=== PATIENT | male | born 1945 | race Caucasian/White ===

== ENCOUNTER 2018-06-04 06:26 | Inpatient (IN) | payer OTHER ==
[2018-06-04] VITALS (16 sets, daily range): BP systolic 94–138
[~2018-06-04] VITALS: Ht 182.9 cm; Wt 90.7 kg
[2018-06-04] MEDS ORDERED: NACL 0.9% 1,000 ML IV ONE ×4 (06:45→08:45)
[2018-06-04 07:03] LABS: BASOPHILS % (AUTO) 0.3 % (0.0-2.0); EOSINOPHILS # (AUTO) 0.3 K/uL (0.0-0.4); EOSINOPHILS % (AUTO) 3.2 % (0.0-4.0); HEMATOCRIT 29.2 % (36-54); HEMOGLOBIN 9.7 g/dL (14.0-18.0); LYMPHOCYTES # (AUTO) 1.4 K/uL (1.0-5.5); LYMPHOCYTES % (AUTO) 13.1 % (20.5-51.5); MEAN CORPUSCULAR HEMOGLOBIN 29 pg (27-31); MEAN CORPUSCULAR HGB CONC 33 % (32-36); MEAN CORPUSCULAR VOLUME 88 fL (79.0-98.0); MONOCYTES # (AUTO) 1.2 K/uL (0.0-1.0); MONOCYTES % (AUTO) 11.1 % (1.7-9.3); NEUTROPHILS # (AUTO) 7.8 K/uL (1.8-7.7); NEUTROPHILS % (AUTO) 72.3 % (40.0-70.0); PLATELET COUNT (AUTO) 414 K/uL (130-430); RED BLOOD CELL COUNT(AUTO) 3.34 MIL/uL (4.2-6.2); WHITE BLOOD COUNT (AUTO) 10.7 K/uL (4.8-10.8)
[2018-06-04 07:14] LABS: INR 1.2 (0.80-1.20); PROTHROMBIN TIME 12.1 SECS (9.5-12.5)
[2018-06-04] MEDS ORDERED: cefTRIAXone 1 GM IVPB PREMIX 50 ML IV ONE (07:15)
[2018-06-04 07:16] LABS: ALANINE AMINOTRANSFERASE 20 U/L (12-78); ALBUMIN 2.3 g/dL (3.4-4.8); ANION GAP 12 (5-15); ASPARTATE AMINOTRANSFERASE 24 U/L (10-37); CALCIUM 9.1 mg/dL (8.4-11.0); CHLORIDE 100 mmol/L (98-107); CREATININE 1.48 mg/dL (0.55-1.30); GLUCOSE 87 mg/dL (70-99); POTASSIUM 4.1 mmol/L (3.5-5.1); SODIUM SERUM 136 mmol/L (136-145); TOTAL BILIRUBIN 0.5 mg/dL (0.0-1.0); UREA NITROGEN, BLOOD 27 mg/dL (8-21)
[2018-06-04] MEDS ORDERED: VANCOMYCIN HCL 1,000 MG in NS 250 ML IV ONE (08:00)
[2018-06-04] MEDS ORDERED: VANCOMYCIN HCL 1000 MG/VIAL IV ONE (08:17)
[2018-06-04] MEDS ORDERED: TRAZ-123 PO (08:48)
[2018-06-04] MEDS ORDERED: HYDR20TA PO (08:48)
[2018-06-04] MEDS ORDERED: FLUT1DIS5 IH (08:48)
[2018-06-04] MEDS ORDERED: LEVO100T PO (08:48)
[2018-06-04] MEDS ORDERED: ATRMDI INH (08:48)
[2018-06-04] MEDS ORDERED: ONDA8TAB9 PO (08:48)
[2018-06-04] MEDS ORDERED: VIS50 PO (08:49)
[2018-06-04] MEDS ORDERED: NOREPINEPHRINE BITARTRATE 4 MG in NS 246 ML IV ONE (09:45)
[2018-06-04] MEDS ORDERED: PIPERACILLIN/TAZO 3.375/DEX-IS 50 ML IV ONE (14:15)
[2018-06-04] MEDS ORDERED: HYDROCORTISONE SOD SUCC 100 MG/2 ML VIAL IVP ONE (14:15)
[2018-06-04] MEDS ORDERED: IPRATROPIUM BROM 0.5 MG/2.5 ML VIAL.NEB (ATROVENT) INH PRN (14:30)
[2018-06-04] MEDS ORDERED: ALBUTEROL SULFATE 0.083% 2.5 MG/3 ML VIAL.NEB INH PRN (14:30)
[2018-06-04 14:53] LABS: THYROID STIMULATING HORMONE 30.47 uIu/mL (0.34-4.82)
[2018-06-04] MEDS: NACL 0.9% 1,000 ML IV SCH ×2 (15:04→23:19)
[2018-06-04] MEDS ORDERED: VANCOMYCIN HCL 2,000 MG in NS 500 ML IV ONE (15:30)
[2018-06-04] MEDS ORDERED: ACETAMINOPHEN 325 MG TABLET PO PRN (16:15)
[2018-06-04] MEDS: ALBUTEROL SULFATE 0.083% 2.5 MG/3 ML VIAL.NEB INH SCH (19:38)
[2018-06-04] MEDS: IPRATROPIUM BROM 0.5 MG/2.5 ML VIAL.NEB (ATROVENT) INH SCH (19:38)
[2018-06-04] MEDS: PIPERACILLIN/TAZO 3.375/DEX-IS 50 ML IV SCH (21:14)
[2018-06-04] MEDS: traZODone HCL 50 MG TABLET (DESYREL) PO SCH (21:31)
[2018-06-04] MEDS: HYDROCORTISONE SOD SUCC 100 MG/2 ML VIAL IVP SCH (23:14)
[2018-06-05] VITALS (24 sets, daily range): BP systolic 92–134
[2018-06-05] MEDS: IPRATROPIUM BROM 0.5 MG/2.5 ML VIAL.NEB (ATROVENT) INH SCH ×4 (02:00→20:05)
[2018-06-05] MEDS: ALBUTEROL SULFATE 0.083% 2.5 MG/3 ML VIAL.NEB INH SCH ×4 (02:00→20:05)
[2018-06-05] MEDS: PIPERACILLIN/TAZO 3.375/DEX-IS 50 ML IV SCH ×5 (05:56→23:33)
[2018-06-05 06:00] LABS: ALANINE AMINOTRANSFERASE 22 U/L (12-78); ALBUMIN 1.8 g/dL (3.4-4.8); ANION GAP 14 (5-15); ASPARTATE AMINOTRANSFERASE 25 U/L (10-37); CALCIUM 8.4 mg/dL (8.4-11.0); CHLORIDE 105 mmol/L (98-107); CREATININE 1.11 mg/dL (0.55-1.30); GLUCOSE 162 mg/dL (70-99); POTASSIUM 4.2 mmol/L (3.5-5.1); SODIUM SERUM 139 mmol/L (136-145); TOTAL BILIRUBIN 0.3 mg/dL (0.0-1.0); UREA NITROGEN, BLOOD 20 mg/dL (8-21)
[2018-06-05 06:05] LABS: BASOPHILS % (AUTO) 0.1 % (0.0-2.0); HEMOGLOBIN 8.9 g/dL (14.0-18.0); LYMPHOCYTES # (AUTO) 0.4 K/uL (1.0-5.5); LYMPHOCYTES % (AUTO) 3.8 % (20.5-51.5); MEAN CORPUSCULAR HEMOGLOBIN 30 pg (27-31); MEAN CORPUSCULAR HGB CONC 33 % (32-36); MEAN CORPUSCULAR VOLUME 91 fL (79.0-98.0); MONOCYTES # (AUTO) 0.4 K/uL (0.0-1.0); MONOCYTES % (AUTO) 3.6 % (1.7-9.3); NEUTROPHILS # (AUTO) 9.5 K/uL (1.8-7.7); NEUTROPHILS % (AUTO) 92.5 % (40.0-70.0); PLATELET COUNT (AUTO) 363 K/uL (130-430); RED BLOOD CELL COUNT(AUTO) 2.98 MIL/uL (4.2-6.2); WHITE BLOOD COUNT (AUTO) 10.3 K/uL (4.8-10.8)
[2018-06-05] MEDS ORDERED: HYDROCORTISONE SOD SUCC 100 MG/2 ML VIAL ONE (06:19)
[2018-06-05] MEDS: HYDROCORTISONE SOD SUCC 100 MG/2 ML VIAL IVP SCH ×3 (06:21→21:36)
[2018-06-05] MEDS: LEVOTHYROXINE SODIUM 0.112 MG TABLET PO SCH (06:22)
[2018-06-05] MEDS: PANTOPRAZOLE SODIUM 40 MG TAB PO SCH (06:22)
[2018-06-05] MEDS ORDERED: LEVOTHYROXINE SODIUM 0.1 MG TABLET PO SCH (07:00)
[2018-06-05] MEDS: NACL 0.9% 1,000 ML IV SCH (11:45)
[2018-06-05] MEDS: NOREPINEPHRINE BITARTRATE 4 MG in NS 246 ML IV PRN (11:46)
[2018-06-05] MEDS ORDERED: NOREPINEPHRINE 4 MG/4 ML VIAL IV ONE (11:47)
[2018-06-05] MEDS: VANCOMYCIN HCL 1,250 MG in NS 250 ML IV SCH (14:01)
[2018-06-05 15:31] LABS: BF APPEARANCE UNSPUN HAZY (CLEAR); BODY FLUID COLOR YELLOW (LT YELLOW); BODY FLUID TOTAL VOLUME 1000 mL; RBC, BODY FLUID 1208 /uL; SOURCE/TYPE ,BODY FLUID THORACENTESIS; WBC, BODY FLUID 345 /uL
[2018-06-05 15:32] LABS: MONOCYTES,BODY FLUID 9 %; NEUTROPHIL, BODY FLUID 91 %
[2018-06-05] MEDS: traZODone HCL 50 MG TABLET (DESYREL) PO SCH (20:05)
[2018-06-06] VITALS (24 sets, daily range): BP systolic 100–127
[2018-06-06] MEDS: IPRATROPIUM BROM 0.5 MG/2.5 ML VIAL.NEB (ATROVENT) INH SCH ×4 (01:01→19:00)
[2018-06-06] MEDS: ALBUTEROL SULFATE 0.083% 2.5 MG/3 ML VIAL.NEB INH SCH ×4 (01:01→19:00)
[2018-06-06] MEDS: VANCOMYCIN HCL 1,250 MG in NS 250 ML IV SCH ×2 (01:16→13:26)
[2018-06-06] MEDS: PANTOPRAZOLE SODIUM 40 MG TAB PO SCH (05:45)
[2018-06-06] MEDS: PIPERACILLIN/TAZO 3.375/DEX-IS 50 ML IV SCH ×4 (05:46→23:26)
[2018-06-06] MEDS: HYDROCORTISONE SOD SUCC 100 MG/2 ML VIAL IVP SCH ×3 (05:46→22:11)
[2018-06-06] MEDS: LEVOTHYROXINE SODIUM 0.112 MG TABLET PO SCH (06:44)
[2018-06-06 06:52] LABS: ANION GAP 13 (5-15); CHLORIDE 105 mmol/L (98-107); GLUCOSE 230 mg/dL (70-99); POTASSIUM 3.5 mmol/L (3.5-5.1); SODIUM SERUM 139 mmol/L (136-145)
[2018-06-06 06:53] LABS: ALANINE AMINOTRANSFERASE 21 U/L (12-78); ALBUMIN 1.8 g/dL (3.4-4.8); ASPARTATE AMINOTRANSFERASE 21 U/L (10-37); CALCIUM 8.6 mg/dL (8.4-11.0); CREATININE 1.18 mg/dL (0.55-1.30); HEMATOCRIT 24.5 % (36-54); HEMOGLOBIN 7.9 g/dL (14.0-18.0); RED BLOOD CELL COUNT(AUTO) 2.76 MIL/uL (4.2-6.2); TOTAL BILIRUBIN 0.2 mg/dL (0.0-1.0); UREA NITROGEN, BLOOD 17 mg/dL (8-21); WHITE BLOOD COUNT (AUTO) 18.3 K/uL (4.8-10.8)
[2018-06-06 06:54] LABS: BASOPHILS % (AUTO) 0.1 % (0.0-2.0); EOSINOPHILS % (AUTO) 0.1 % (0.0-4.0); LYMPHOCYTES # (AUTO) 0.4 K/uL (1.0-5.5); LYMPHOCYTES % (AUTO) 2.4 % (20.5-51.5); MEAN CORPUSCULAR HEMOGLOBIN 29 pg (27-31); MEAN CORPUSCULAR HGB CONC 32 % (32-36); MEAN CORPUSCULAR VOLUME 89 fL (79.0-98.0); NEUTROPHILS % (AUTO) 92.4 % (40.0-70.0); PLATELET COUNT (AUTO) 393 K/uL (130-430); RED CELL DISTRIBUTION WIDTH 15.2 % (9.0-15.0)
[2018-06-06 06:55] LABS: MONOCYTES # (AUTO) 0.9 K/uL (0.0-1.0)
[2018-06-06] MEDS: NOREPINEPHRINE BITARTRATE 4 MG in NS 246 ML IV PRN (10:47)
[2018-06-06] MEDS: PROMETHAZINE 6.25 MG/ CODEINE 10 MG/ 5 ML PO PRN ×2 (18:03→22:11)
[2018-06-06] MEDS: traZODone HCL 50 MG TABLET (DESYREL) PO SCH (20:18)
[2018-06-07] VITALS (16 sets, daily range): BP systolic 92–135
[2018-06-07] MEDS: VANCOMYCIN HCL 1,250 MG in NS 250 ML IV SCH ×2 (00:37→13:33)
[2018-06-07] MEDS: ALBUTEROL SULFATE 0.083% 2.5 MG/3 ML VIAL.NEB INH SCH ×4 (00:51→20:19)
[2018-06-07] MEDS: IPRATROPIUM BROM 0.5 MG/2.5 ML VIAL.NEB (ATROVENT) INH SCH ×4 (00:51→20:20)
[2018-06-07] MEDS: HYDROCORTISONE SOD SUCC 100 MG/2 ML VIAL IVP SCH ×3 (06:15→21:39)
[2018-06-07] MEDS: LEVOTHYROXINE SODIUM 0.112 MG TABLET PO SCH (06:15)
[2018-06-07] MEDS: PANTOPRAZOLE SODIUM 40 MG TAB PO SCH (06:15)
[2018-06-07] MEDS: PIPERACILLIN/TAZO 3.375/DEX-IS 50 ML IV SCH ×4 (06:16→23:33)
[2018-06-07 08:58] LABS: WHITE BLOOD COUNT (AUTO) 17.5 K/uL (4.8-10.8)
[2018-06-07 08:59] LABS: HEMATOCRIT 27.2 % (36-54); HEMOGLOBIN 8.9 g/dL (14.0-18.0); MEAN CORPUSCULAR HEMOGLOBIN 29 pg (27-31); MEAN CORPUSCULAR HGB CONC 33 % (32-36); MEAN CORPUSCULAR VOLUME 90 fL (79.0-98.0); PLATELET COUNT (AUTO) 425 K/uL (130-430); RED BLOOD CELL COUNT(AUTO) 3.04 MIL/uL (4.2-6.2); RED CELL DISTRIBUTION WIDTH 15.8 % (9.0-15.0)
[2018-06-07 09:00] LABS: BASOPHILS % (AUTO) 0.1 % (0.0-2.0); EOSINOPHILS % (AUTO) 0.1 % (0.0-4.0); LYMPHOCYTES # (AUTO) 0.5 K/uL (1.0-5.5); LYMPHOCYTES % (AUTO) 2.8 % (20.5-51.5); MONOCYTES # (AUTO) 0.4 K/uL (0.0-1.0); MONOCYTES % (AUTO) 2.3 % (1.7-9.3); NEUTROPHILS # (AUTO) 16.6 K/uL (1.8-7.7); NEUTROPHILS % (AUTO) 94.7 % (40.0-70.0)
[2018-06-07 09:09] LABS: ANION GAP 11 (5-15); CHLORIDE 110 mmol/L (98-107); POTASSIUM 3.6 mmol/L (3.5-5.1); SODIUM SERUM 143 mmol/L (136-145)
[2018-06-07 09:10] LABS: CALCIUM 8.8 mg/dL (8.4-11.0); CREATININE 1.06 mg/dL (0.55-1.30); GLUCOSE 146 mg/dL (70-99); UREA NITROGEN, BLOOD 14 mg/dL (8-21)
[2018-06-07] MEDS: traZODone HCL 50 MG TABLET (DESYREL) PO SCH (21:37)
[2018-06-08] MEDS: VANCOMYCIN HCL 1,250 MG in NS 250 ML IV SCH ×2 (00:52→12:17)
[2018-06-08] MEDS: ALBUTEROL SULFATE 0.083% 2.5 MG/3 ML VIAL.NEB INH SCH ×4 (01:00→20:01)
[2018-06-08] MEDS: IPRATROPIUM BROM 0.5 MG/2.5 ML VIAL.NEB (ATROVENT) INH SCH ×4 (01:00→20:01)
[2018-06-08 01:50] VITALS: BP_SYST 114
[2018-06-08] MEDS: LEVOTHYROXINE SODIUM 0.112 MG TABLET PO SCH (06:14)
[2018-06-08] MEDS: PANTOPRAZOLE SODIUM 40 MG TAB PO SCH (06:14)
[2018-06-08] MEDS: HYDROCORTISONE SOD SUCC 100 MG/2 ML VIAL IVP SCH (06:15)
[2018-06-08] MEDS: PIPERACILLIN/TAZO 3.375/DEX-IS 50 ML IV SCH ×3 (06:15→18:17)
[2018-06-08 08:55] VITALS: BP_SYST 120
[2018-06-08 09:30] LABS: HEMATOCRIT 28.4 % (36-54); HEMOGLOBIN 9.4 g/dL (14.0-18.0); MEAN CORPUSCULAR VOLUME 90 fL (79.0-98.0); RED BLOOD CELL COUNT(AUTO) 3.15 MIL/uL (4.2-6.2); WHITE BLOOD COUNT (AUTO) 18.2 K/uL (4.8-10.8)
[2018-06-08 09:31] LABS: EOSINOPHILS % (AUTO) 0.6 % (0.0-4.0); LYMPHOCYTES # (AUTO) 0.7 K/uL (1.0-5.5); LYMPHOCYTES % (AUTO) 3.6 % (20.5-51.5); MEAN CORPUSCULAR HEMOGLOBIN 30 pg (27-31); MEAN CORPUSCULAR HGB CONC 33 % (32-36); MONOCYTES % (AUTO) 4.8 % (1.7-9.3); NEUTROPHILS # (AUTO) 16.5 K/uL (1.8-7.7); PLATELET COUNT (AUTO) 506 K/uL (130-430); RED CELL DISTRIBUTION WIDTH 15.7 % (9.0-15.0)
[2018-06-08 09:32] LABS: EOSINOPHILS # (AUTO) 0.1 K/uL (0.0-0.4); MONOCYTES # (AUTO) 0.9 K/uL (0.0-1.0)
[2018-06-08] MEDS ORDERED: HYDROCORTISONE 10 MG TABLET (CORTEF) PO ONE (11:30)
[2018-06-08 12:23] VITALS: BP_SYST 107
[2018-06-08 12:41] LABS: BODY FLUID GLUCOSE 177 mg/dL
[2018-06-08] MEDS: MAG-AL HYDROX/SIMETH 30 ML UDC PO PRN (15:56)
[2018-06-08 16:54] VITALS: BP_SYST 134
[2018-06-08 20:00] VITALS: BP_SYST 127
[2018-06-08] MEDS: traZODone HCL 50 MG TABLET (DESYREL) PO SCH (20:11)
[2018-06-08] MEDS: HYDROCORTISONE 10 MG TABLET (CORTEF) PO SCH (20:11)
[2018-06-09] MEDS: PIPERACILLIN/TAZO 3.375/DEX-IS 50 ML IV SCH ×5 (00:12→23:19)
[2018-06-09] MEDS: ALBUTEROL SULFATE 0.083% 2.5 MG/3 ML VIAL.NEB INH SCH ×4 (01:00→19:00)
[2018-06-09] MEDS: IPRATROPIUM BROM 0.5 MG/2.5 ML VIAL.NEB (ATROVENT) INH SCH ×4 (01:00→19:00)
[2018-06-09] MEDS: VANCOMYCIN HCL 1,250 MG in NS 250 ML IV SCH ×2 (01:28→11:55)
[2018-06-09 02:58] VITALS: BP_SYST 115
[2018-06-09] MEDS: LEVOTHYROXINE SODIUM 0.112 MG TABLET PO SCH (06:03)
[2018-06-09] MEDS: PANTOPRAZOLE SODIUM 40 MG TAB PO SCH (06:03)
[2018-06-09 07:30] LABS: ANION GAP 5 (5-15); CALCIUM 9.4 mg/dL (8.4-11.0); CHLORIDE 105 mmol/L (98-107); GLUCOSE 106 mg/dL (70-99); POTASSIUM 3.4 mmol/L (3.5-5.1); SODIUM SERUM 139 mmol/L (136-145); UREA NITROGEN, BLOOD 19 mg/dL (8-21)
[2018-06-09 07:31] LABS: CREATININE 1.01 mg/dL (0.55-1.30)
[2018-06-09 08:15] VITALS: BP_SYST 117
[2018-06-09] MEDS: MAG-AL HYDROX/SIMETH 30 ML UDC PO PRN (08:18)
[2018-06-09] MEDS: HYDROCORTISONE 10 MG TABLET (CORTEF) PO SCH ×2 (08:19→22:08)
[2018-06-09 09:41] LABS: WHITE BLOOD COUNT (AUTO) 19.4 K/uL (4.8-10.8)
[2018-06-09 09:42] LABS: HEMATOCRIT 31.4 % (36-54); HEMOGLOBIN 10.5 g/dL (14.0-18.0); MEAN CORPUSCULAR HEMOGLOBIN 30 pg (27-31); MEAN CORPUSCULAR HGB CONC 33 % (32-36); MEAN CORPUSCULAR VOLUME 89 fL (79.0-98.0); PLATELET COUNT (AUTO) 586 K/uL (130-430); RED BLOOD CELL COUNT(AUTO) 3.54 MIL/uL (4.2-6.2); RED CELL DISTRIBUTION WIDTH 15.8 % (9.0-15.0)
[2018-06-09 09:43] LABS: BASOPHILS # (AUTO) 0.1 K/uL (0.0-0.2); BASOPHILS % (AUTO) 0.3 % (0.0-2.0); EOSINOPHILS # (AUTO) 0.4 K/uL (0.0-0.4); LYMPHOCYTES # (AUTO) 1.3 K/uL (1.0-5.5); LYMPHOCYTES % (AUTO) 6.9 % (20.5-51.5); MONOCYTES # (AUTO) 1.2 K/uL (0.0-1.0); MONOCYTES % (AUTO) 6.1 % (1.7-9.3); NEUTROPHILS # (AUTO) 16.4 K/uL (1.8-7.7); NEUTROPHILS % (AUTO) 84.7 % (40.0-70.0)
[2018-06-09] MEDS ORDERED: POTASSIUM CHLORIDE 20 MEQ TAB.PRT.SR PO ONE (10:45)
[2018-06-09 12:55] VITALS: BP_SYST 136
[2018-06-09 16:49] VITALS: BP_SYST 101
[2018-06-09 20:00] VITALS: BP_SYST 127; BP_SYST 133
[2018-06-09] MEDS: traZODone HCL 50 MG TABLET (DESYREL) PO SCH (22:08)
[2018-06-09 23:56] VITALS: BP_SYST 105
[2018-06-10] MEDS: VANCOMYCIN HCL 1,250 MG in NS 250 ML IV SCH ×2 (00:19→12:46)
[2018-06-10] MEDS: ALBUTEROL SULFATE 0.083% 2.5 MG/3 ML VIAL.NEB INH SCH ×4 (01:00→19:21)
[2018-06-10] MEDS: IPRATROPIUM BROM 0.5 MG/2.5 ML VIAL.NEB (ATROVENT) INH SCH ×4 (01:00→19:22)
[2018-06-10] MEDS: PANTOPRAZOLE SODIUM 40 MG TAB PO SCH (06:06)
[2018-06-10] MEDS: PIPERACILLIN/TAZO 3.375/DEX-IS 50 ML IV SCH ×3 (06:06→17:25)
[2018-06-10] MEDS: LEVOTHYROXINE SODIUM 0.112 MG TABLET PO SCH (06:06)
[2018-06-10 07:10] LABS: HEMATOCRIT 30.3 % (36-54); HEMOGLOBIN 9.8 g/dL (14.0-18.0); MEAN CORPUSCULAR HEMOGLOBIN 30 pg (27-31); MEAN CORPUSCULAR HGB CONC 32 % (32-36); MEAN CORPUSCULAR VOLUME 92 fL (79.0-98.0); PLATELET COUNT (AUTO) 473 K/uL (130-430); RED BLOOD CELL COUNT(AUTO) 3.29 MIL/uL (4.2-6.2); RED CELL DISTRIBUTION WIDTH 15.6 % (9.0-15.0); WHITE BLOOD COUNT (AUTO) 17.4 K/uL (4.8-10.8)
[2018-06-10 07:11] LABS: EOSINOPHILS # (AUTO) 0.4 K/uL (0.0-0.4); EOSINOPHILS % (AUTO) 2.1 % (0.0-4.0); LYMPHOCYTES # (AUTO) 0.8 K/uL (1.0-5.5); LYMPHOCYTES % (AUTO) 4.8 % (20.5-51.5); MONOCYTES # (AUTO) 1.1 K/uL (0.0-1.0); MONOCYTES % (AUTO) 6.4 % (1.7-9.3); NEUTROPHILS # (AUTO) 15.1 K/uL (1.8-7.7); NEUTROPHILS % (AUTO) 86.7 % (40.0-70.0)
[2018-06-10 07:41] VITALS: BP_SYST 115
[2018-06-10] MEDS: HYDROCORTISONE 10 MG TABLET (CORTEF) PO SCH ×2 (08:30→20:54)
[2018-06-10] MEDS: MAG-AL HYDROX/SIMETH 30 ML UDC PO PRN (08:33)
[2018-06-10] MEDS ORDERED: ENOXAPARIN SODIUM 40 MG/0.4 ML SYRINGE SUBCUT ONE (10:15)
[2018-06-10] MEDS: ONDANSETRON HCL 4 MG/2 ML VIAL IVP PRN ×2 (10:35→17:37)
[2018-06-10 12:45] VITALS: BP_SYST 113
[2018-06-10 17:19] VITALS: BP_SYST 117
[2018-06-10 19:00] VITALS: BP_SYST 113
[2018-06-10 20:00] VITALS: BP_SYST 113
[2018-06-10] MEDS: traZODone HCL 50 MG TABLET (DESYREL) PO SCH (20:55)
[2018-06-11 00:12] VITALS: BP_SYST 100
[2018-06-11] MEDS: IPRATROPIUM BROM 0.5 MG/2.5 ML VIAL.NEB (ATROVENT) INH SCH ×4 (00:36→19:39)
[2018-06-11] MEDS: ALBUTEROL SULFATE 0.083% 2.5 MG/3 ML VIAL.NEB INH SCH ×4 (00:36→19:40)
[2018-06-11] MEDS: PIPERACILLIN/TAZO 3.375/DEX-IS 50 ML IV SCH ×3 (00:52→18:00)
[2018-06-11] MEDS: VANCOMYCIN HCL 1,250 MG in NS 250 ML IV SCH ×2 (00:57→18:01)
[2018-06-11] MEDS: ONDANSETRON HCL 4 MG/2 ML VIAL IVP PRN ×2 (06:12→10:20)
[2018-06-11] MEDS: LEVOTHYROXINE SODIUM 0.112 MG TABLET PO SCH (06:17)
[2018-06-11] MEDS: PANTOPRAZOLE SODIUM 40 MG TAB PO SCH (06:17)
[2018-06-11 07:33] LABS: HEMATOCRIT 29.8 % (36-54); HEMOGLOBIN 9.4 g/dL (14.0-18.0); MEAN CORPUSCULAR VOLUME 91 fL (79.0-98.0); RED BLOOD CELL COUNT(AUTO) 3.27 MIL/uL (4.2-6.2); WHITE BLOOD COUNT (AUTO) 13.3 K/uL (4.8-10.8)
[2018-06-11 07:34] LABS: EOSINOPHILS # (AUTO) 0.5 K/uL (0.0-0.4); LYMPHOCYTES # (AUTO) 0.5 K/uL (1.0-5.5); LYMPHOCYTES % (AUTO) 4.1 % (20.5-51.5); MEAN CORPUSCULAR HEMOGLOBIN 29 pg (27-31); MEAN CORPUSCULAR HGB CONC 32 % (32-36); MONOCYTES % (AUTO) 7.3 % (1.7-9.3); NEUTROPHILS # (AUTO) 11.3 K/uL (1.8-7.7); NEUTROPHILS % (AUTO) 84.6 % (40.0-70.0); PLATELET COUNT (AUTO) 402 K/uL (130-430); RED CELL DISTRIBUTION WIDTH 16.2 % (9.0-15.0)
[2018-06-11 07:41] VITALS: BP_SYST 115
[2018-06-11 08:02] LABS: ANION GAP 6 (5-15); CHLORIDE 100 mmol/L (98-107); GLUCOSE 91 mg/dL (70-99); POTASSIUM 3.4 mmol/L (3.5-5.1); SODIUM SERUM 135 mmol/L (136-145)
[2018-06-11 08:03] LABS: ALANINE AMINOTRANSFERASE 14 U/L (12-78); ALBUMIN 1.9 g/dL (3.4-4.8); ASPARTATE AMINOTRANSFERASE 18 U/L (10-37); CALCIUM 8.8 mg/dL (8.4-11.0); CREATININE 1.06 mg/dL (0.55-1.30); TOTAL BILIRUBIN 0.4 mg/dL (0.0-1.0); UREA NITROGEN, BLOOD 16 mg/dL (8-21)
[2018-06-11] MEDS: D5/0.45 NS 1,000 ML IV SCH ×2 (09:47→19:15)
[2018-06-11] MEDS: ENOXAPARIN SODIUM 40 MG/0.4 ML SYRINGE SUBCUT SCH (11:32)
[2018-06-11 12:15] VITALS: BP_SYST 117
[2018-06-11] MEDS ORDERED: DIATR MEGLU/DIATRIZ SOD 30 ML SOLUTION PO ONE (12:15)
[2018-06-11] MEDS ORDERED: POTASSIUM CHLORIDE 40 MEQ, LIDOCAINE JECT 2% PF 100 MG 50 MG in NS 250 ML IV ONE (14:00)
[2018-06-11 16:51] VITALS: BP_SYST 107
[2018-06-11 19:40] VITALS: BP_SYST 106
[2018-06-11] MEDS: traZODone HCL 50 MG TABLET (DESYREL) PO SCH (21:00)
[2018-06-11] MEDS: HYDROCORTISONE SOD SUCC 100 MG/2 ML VIAL IVP SCH (23:12)
[2018-06-12] MEDS: ALBUTEROL SULFATE 0.083% 2.5 MG/3 ML VIAL.NEB INH SCH ×5 (01:00→19:45)
[2018-06-12] MEDS: IPRATROPIUM BROM 0.5 MG/2.5 ML VIAL.NEB (ATROVENT) INH SCH ×5 (01:00→19:44)
[2018-06-12 01:46] VITALS: BP_SYST 111
[2018-06-12] MEDS: VANCOMYCIN HCL 1,250 MG in NS 250 ML IV SCH ×2 (02:45→17:13)
[2018-06-12] MEDS: D5/0.45 NS 1,000 ML IV SCH ×2 (06:48→17:16)
[2018-06-12 06:52] LABS: BASOPHILS % (AUTO) 0.1 % (0.0-2.0); EOSINOPHILS # (AUTO) 0.2 K/uL (0.0-0.4); EOSINOPHILS % (AUTO) 1.2 % (0.0-4.0); HEMATOCRIT 30.4 % (36-54); HEMOGLOBIN 9.6 g/dL (14.0-18.0); LYMPHOCYTES # (AUTO) 0.5 K/uL (1.0-5.5); LYMPHOCYTES % (AUTO) 3.6 % (20.5-51.5); MEAN CORPUSCULAR HEMOGLOBIN 29 pg (27-31); MEAN CORPUSCULAR HGB CONC 32 % (32-36); MEAN CORPUSCULAR VOLUME 92 fL (79.0-98.0); MONOCYTES # (AUTO) 0.9 K/uL (0.0-1.0); MONOCYTES % (AUTO) 6.2 % (1.7-9.3); NEUTROPHILS # (AUTO) 12.3 K/uL (1.8-7.7); NEUTROPHILS % (AUTO) 88.9 % (40.0-70.0); PLATELET COUNT (AUTO) 358 K/uL (130-430); RED BLOOD CELL COUNT(AUTO) 3.31 MIL/uL (4.2-6.2); RED CELL DISTRIBUTION WIDTH 16.2 % (9.0-15.0); WHITE BLOOD COUNT (AUTO) 13.9 K/uL (4.8-10.8)
[2018-06-12] MEDS: LEVOTHYROXINE SODIUM 0.112 MG TABLET PO SCH (07:00)
[2018-06-12 07:04] LABS: ANION GAP 5 (5-15); CALCIUM 8.8 mg/dL (8.4-11.0); CHLORIDE 104 mmol/L (98-107); CREATININE 1.08 mg/dL (0.55-1.30); GLUCOSE 128 mg/dL (70-99); POTASSIUM 3.9 mmol/L (3.5-5.1); SODIUM SERUM 140 mmol/L (136-145); UREA NITROGEN, BLOOD 15 mg/dL (8-21)
[2018-06-12 07:09] LABS: ALANINE AMINOTRANSFERASE 17 U/L (12-78); ASPARTATE AMINOTRANSFERASE 17 U/L (10-37); TOTAL BILIRUBIN 0.3 mg/dL (0.0-1.0)
[2018-06-12 08:46] VITALS: BP_SYST 121
[2018-06-12] MEDS: HYDROCORTISONE SOD SUCC 100 MG/2 ML VIAL IVP SCH ×2 (10:16→21:23)
[2018-06-12] MEDS: PANTOPRAZOLE SODIUM 40 MG/VIAL (PROTONIX) IVP SCH (10:16)
[2018-06-12] MEDS: ENOXAPARIN SODIUM 40 MG/0.4 ML SYRINGE SUBCUT SCH (10:23)
[2018-06-12] MEDS ORDERED: chlorproMAZINE HCL 50 MG/ 2 ML AMP IV PRN (11:45)
[2018-06-12 12:28] VITALS: BP_SYST 104
[2018-06-12 16:57] VITALS: BP_SYST 108
[2018-06-12 18:10] LABS: PROTHROMBIN TIME 10.3 SECS (9.5-12.5)
[2018-06-12 19:05] VITALS: BP_SYST 129
[2018-06-12] MEDS: traZODone HCL 50 MG TABLET (DESYREL) PO SCH (21:00)
[2018-06-13] VITALS (16 sets, daily range): BP systolic 88–118
[2018-06-13] MEDS: IPRATROPIUM BROM 0.5 MG/2.5 ML VIAL.NEB (ATROVENT) INH SCH ×4 (01:00→19:00)
[2018-06-13] MEDS: ALBUTEROL SULFATE 0.083% 2.5 MG/3 ML VIAL.NEB INH SCH ×4 (01:00→19:00)
[2018-06-13] MEDS: VANCOMYCIN HCL 1,250 MG in NS 250 ML IV SCH (01:56)
[2018-06-13 03:34] LABS: BILIRUBIN,URINE NEGATIVE (NEGATIVE); BLOOD, URINE NEGATIVE (NEGATIVE); CLARITY/URINE CLEAR (CLEAR); COLOR,URINE YELLOW (YELLOW); GLUCOSE,URINE NEGATIVE (NEGATIVE); KETONES,URINE NEGATIVE (NEGATIVE); LEUKOCYTE ESTERASE ,URINE NEGATIVE (NEGATIVE); NITRITE, URINE NEGATIVE (NEGATIVE); PH,URINE 5.5 (5.0-8.0); PROTEIN URINE NEGATIVE (NEGATIVE); UROBILINOGEN,URINE 0.2 (0.2-1.0)
[2018-06-13] MEDS: D5/0.45 NS 1,000 ML IV SCH ×2 (06:20→13:14)
[2018-06-13] MEDS: LEVOTHYROXINE SODIUM 0.112 MG TABLET PO SCH (06:21)
[2018-06-13 07:04] LABS: ANION GAP 7 (5-15); CHLORIDE 106 mmol/L (98-107); CREATININE 0.93 mg/dL (0.55-1.30); GLUCOSE 119 mg/dL (70-99); POTASSIUM 3.7 mmol/L (3.5-5.1); SODIUM SERUM 143 mmol/L (136-145); UREA NITROGEN, BLOOD 12 mg/dL (8-21)
[2018-06-13 07:11] LABS: ALANINE AMINOTRANSFERASE 11 U/L (12-78); ALBUMIN 1.8 g/dL (3.4-4.8); ASPARTATE AMINOTRANSFERASE 21 U/L (10-37); TOTAL BILIRUBIN 0.3 mg/dL (0.0-1.0)
[2018-06-13 07:17] LABS: BASOPHILS % (AUTO) 0.1 % (0.0-2.0); EOSINOPHILS # (AUTO) 0.2 K/uL (0.0-0.4); EOSINOPHILS % (AUTO) 1.6 % (0.0-4.0); HEMATOCRIT 28.7 % (36-54); HEMOGLOBIN 9.4 g/dL (14.0-18.0); LYMPHOCYTES # (AUTO) 0.9 K/uL (1.0-5.5); LYMPHOCYTES % (AUTO) 7.5 % (20.5-51.5); MEAN CORPUSCULAR HEMOGLOBIN 30 pg (27-31); MEAN CORPUSCULAR HGB CONC 33 % (32-36); MEAN CORPUSCULAR VOLUME 92 fL (79.0-98.0); MONOCYTES % (AUTO) 8.1 % (1.7-9.3); NEUTROPHILS # (AUTO) 10.5 K/uL (1.8-7.7); PLATELET COUNT (AUTO) 295 K/uL (130-430); RED BLOOD CELL COUNT(AUTO) 3.14 MIL/uL (4.2-6.2); RED CELL DISTRIBUTION WIDTH 16.1 % (9.0-15.0); WHITE BLOOD COUNT (AUTO) 12.6 K/uL (4.8-10.8)
[2018-06-13] MEDS ORDERED: KETOROLAC TROMETHAMINE 30 MG VIAL IVP PRN ×2 (09:00→12:00)
[2018-06-13] MEDS: PANTOPRAZOLE SODIUM 40 MG/VIAL (PROTONIX) IVP SCH (09:00)
[2018-06-13] MEDS ORDERED: ONDANSETRON HCL 4 MG/2 ML VIAL IVP PRN ×2 (09:00→09:45)
[2018-06-13] MEDS ORDERED: fentaNYL CITRATE/PF 100 MCG/2 ML AMP IVP PRN ×2 (09:00)
[2018-06-13] MEDS ORDERED: NACL 0.9% 1,000 ML IV SCH (09:38)
[2018-06-13 09:55] LABS: NEUTROPHILS % (AUTO) 82.7 % (40.0-70.0)
[2018-06-13] MEDS ORDERED: IPRATROPIUM BROM 0.5 MG/2.5 ML VIAL.NEB (ATROVENT) INH ONE (10:17)
[2018-06-13] MEDS ORDERED: ALBUTEROL SULFATE 0.083% 2.5 MG/3 ML VIAL.NEB INH ONE (10:17)
[2018-06-13] MEDS ORDERED: MORPHINE 4 MG/ML INJ. SYRINGE IVP PRN (12:00)
[2018-06-13] MEDS ORDERED: METOCLOPRAMIDE HCL 10 MG/2 ML VIAL IVP ONE (12:00)
[2018-06-13] MEDS: HYDROCORTISONE SOD SUCC 100 MG/2 ML VIAL IVP SCH ×2 (12:31→21:25)
[2018-06-13] MEDS ORDERED: KETOROLAC TROMETHAMINE 15 MG VIAL ONE (12:34)
[2018-06-13] MEDS: CEFAZOLIN 1 GM IVPB PREMIX 50 ML IV SCH ×2 (13:15→21:28)
[2018-06-13] MEDS: MORPHINE 4 MG/ML INJ. SYRINGE IVP PRN (14:16)
[2018-06-13] MEDS: METOCLOPRAMIDE HCL 10 MG/2 ML VIAL IVP SCH (21:27)
[2018-06-13] MEDS: traZODone HCL 50 MG TABLET (DESYREL) PO SCH (21:28)
[2018-06-14] VITALS (18 sets, daily range): BP systolic 103–124
[2018-06-14] MEDS: MORPHINE 4 MG/ML INJ. SYRINGE IVP PRN ×3 (00:08→23:56)
[2018-06-14] MEDS: IPRATROPIUM BROM 0.5 MG/2.5 ML VIAL.NEB (ATROVENT) INH SCH ×4 (01:00→19:49)
[2018-06-14] MEDS: ALBUTEROL SULFATE 0.083% 2.5 MG/3 ML VIAL.NEB INH SCH ×4 (01:00→19:48)
[2018-06-14] MEDS: D5/0.45 NS 1,000 ML IV SCH (04:43)
[2018-06-14 06:08] LABS: ALANINE AMINOTRANSFERASE 13 U/L (12-78); ALBUMIN 1.8 g/dL (3.4-4.8); ANION GAP 5 (5-15); CALCIUM 8.4 mg/dL (8.4-11.0); CREATININE 1.55 mg/dL (0.55-1.30); GLUCOSE 132 mg/dL (70-99); TOTAL BILIRUBIN 0.2 mg/dL (0.0-1.0); UREA NITROGEN, BLOOD 18 mg/dL (8-21)
[2018-06-14 06:13] LABS: BASOPHILS % (AUTO) 0.2 % (0.0-2.0); EOSINOPHILS % (AUTO) 0.3 % (0.0-4.0); HEMOGLOBIN 9.6 g/dL (14.0-18.0); LYMPHOCYTES # (AUTO) 0.7 K/uL (1.0-5.5); LYMPHOCYTES % (AUTO) 4.3 % (20.5-51.5); MEAN CORPUSCULAR HEMOGLOBIN 29 pg (27-31); MEAN CORPUSCULAR HGB CONC 32 % (32-36); MEAN CORPUSCULAR VOLUME 91 fL (79.0-98.0); MONOCYTES # (AUTO) 0.8 K/uL (0.0-1.0); MONOCYTES % (AUTO) 5.5 % (1.7-9.3); NEUTROPHILS # (AUTO) 13.6 K/uL (1.8-7.7); NEUTROPHILS % (AUTO) 89.7 % (40.0-70.0); PLATELET COUNT (AUTO) 317 K/uL (130-430); RED BLOOD CELL COUNT(AUTO) 3.29 MIL/uL (4.2-6.2); RED CELL DISTRIBUTION WIDTH 16.4 % (9.0-15.0); WHITE BLOOD COUNT (AUTO) 15.1 K/uL (4.8-10.8)
[2018-06-14 06:22] LABS: ASPARTATE AMINOTRANSFERASE 21 U/L (10-37); CHLORIDE 105 mmol/L (98-107); POTASSIUM 4.1 mmol/L (3.5-5.1); SODIUM SERUM 139 mmol/L (136-145)
[2018-06-14] MEDS: LEVOTHYROXINE SODIUM 0.112 MG TABLET PO SCH (06:28)
[2018-06-14] MEDS: METOCLOPRAMIDE HCL 10 MG/2 ML VIAL IVP SCH ×2 (06:28→13:19)
[2018-06-14] MEDS ORDERED: LEVOTHYROXINE SODIUM 0.112 MG TABLET ONE (06:29)
[2018-06-14] MEDS ORDERED: MIDAZOLAM HCL 5 MG/5 ML VIAL IVP ONE (08:00)
[2018-06-14] MEDS ORDERED: PROPOFOL 200MG/ 20ML VIAL (DIPRIVAN) IV ONE (08:00)
[2018-06-14] MEDS ORDERED: GLYCOPYRROLATE 0.2 MG/ML VIAL IJ ONE (08:00)
[2018-06-14] MEDS ORDERED: SEVOFLURANE 15 MIN GAS INH ONE (08:00)
[2018-06-14] MEDS ORDERED: PHENYLEPHRINE HCL 10 MG/ML VIAL (NEOSYNEPHRINE) IV ONE (08:00)
[2018-06-14] MEDS ORDERED: WATER FOR IRRIGATION,STERILE 1,000 ML IRRIG.SOLN IR ONE (08:00)
[2018-06-14] MEDS ORDERED: NS 1000 ML IV.SOLN IV ONE (08:00)
[2018-06-14] MEDS ORDERED: BUPIVACAINE /EPINEPHRINE/PF 0.25% 30 ML VIAL INJ ONE (08:00)
[2018-06-14] MEDS ORDERED: fentaNYL CITRATE 250 MCG/5 ML AMP IV ONE (08:00)
[2018-06-14] MEDS: HYDROCORTISONE SOD SUCC 100 MG/2 ML VIAL IVP SCH (08:18)
[2018-06-14] MEDS: PANTOPRAZOLE SODIUM 40 MG/VIAL (PROTONIX) IVP SCH (08:18)
[2018-06-14] MEDS ORDERED: FUROSEMIDE 20 MG/2 ML VIAL IVP ONE (10:45)
[2018-06-14] MEDS: VANCOMYCIN HCL 1,000 MG in NS 250 ML IV SCH (14:40)
[2018-06-14] MEDS ORDERED: KCL 20 mEq in D5/0.45NS 1000mL 1,000 ML IV ONE (15:00)
[2018-06-15 00:24] VITALS: BP_SYST 107
[2018-06-15] MEDS: IPRATROPIUM BROM 0.5 MG/2.5 ML VIAL.NEB (ATROVENT) INH SCH ×4 (01:00→20:23)
[2018-06-15] MEDS: ALBUTEROL SULFATE 0.083% 2.5 MG/3 ML VIAL.NEB INH SCH ×4 (01:00→20:23)
[2018-06-15] MEDS: MORPHINE 4 MG/ML INJ. SYRINGE IVP PRN ×3 (04:23→20:11)
[2018-06-15] MEDS: METOCLOPRAMIDE HCL 10 MG/2 ML VIAL IVP SCH ×5 (05:54→23:34)
[2018-06-15] MEDS: LEVOTHYROXINE SODIUM 0.112 MG TABLET PO SCH (05:54)
[2018-06-15 07:07] LABS: BASOPHILS # (AUTO) 0.2 K/uL (0.0-0.2); BASOPHILS % (AUTO) 1.1 % (0.0-2.0); EOSINOPHILS # (AUTO) 0.1 K/uL (0.0-0.4); EOSINOPHILS % (AUTO) 0.7 % (0.0-4.0); HEMATOCRIT 29.1 % (36-54); HEMOGLOBIN 9.6 g/dL (14.0-18.0); LYMPHOCYTES # (AUTO) 0.8 K/uL (1.0-5.5); LYMPHOCYTES % (AUTO) 4.1 % (20.5-51.5); MEAN CORPUSCULAR HEMOGLOBIN 30 pg (27-31); MEAN CORPUSCULAR HGB CONC 33 % (32-36); MEAN CORPUSCULAR VOLUME 91 fL (79.0-98.0); MONOCYTES # (AUTO) 0.7 K/uL (0.0-1.0); MONOCYTES % (AUTO) 3.9 % (1.7-9.3); NEUTROPHILS # (AUTO) 16.5 K/uL (1.8-7.7); NEUTROPHILS % (AUTO) 90.2 % (40.0-70.0); PLATELET COUNT (AUTO) 282 K/uL (130-430); RED BLOOD CELL COUNT(AUTO) 3.19 MIL/uL (4.2-6.2); RED CELL DISTRIBUTION WIDTH 16.4 % (9.0-15.0); WHITE BLOOD COUNT (AUTO) 18.3 K/uL (4.8-10.8)
[2018-06-15 07:53] LABS: ALANINE AMINOTRANSFERASE 16 U/L (12-78); ALBUMIN 1.8 g/dL (3.4-4.8); ANION GAP 5 (5-15); ASPARTATE AMINOTRANSFERASE 20 U/L (10-37); BILIRUBIN,DIRECT 0.1 mg/dL (0.0-0.3); CALCIUM 8.8 mg/dL (8.4-11.0); CHLORIDE 106 mmol/L (98-107); CREATININE 1.75 mg/dL (0.55-1.30); GLUCOSE 105 mg/dL (70-99); POTASSIUM 3.4 mmol/L (3.5-5.1); SODIUM SERUM 141 mmol/L (136-145); TOTAL BILIRUBIN 0.3 mg/dL (0.0-1.0); UREA NITROGEN, BLOOD 16 mg/dL (8-21)
[2018-06-15 08:00] VITALS: BP_SYST 118
[2018-06-15] MEDS: BISACODYL 10 MG/SUPPOSITORY RC ONE ×2 (08:45→10:19)
[2018-06-15] MEDS: HYDROCORTISONE SOD SUCC 100 MG/2 ML VIAL IVP SCH ×3 (10:19→20:06)
[2018-06-15] MEDS: PANTOPRAZOLE SODIUM 40 MG/VIAL (PROTONIX) IVP SCH (10:19)
[2018-06-15] MEDS ORDERED: 0.45% NACL 1,000 ML IV SCH (10:30)
[2018-06-15] MEDS ORDERED: DEXTROSE 50% JECT 50 ML DISP.SYRIN IVP PRN (10:30)
[2018-06-15] MEDS ORDERED: COMMUNICATION ORDER XX ONE (10:30)
[2018-06-15] MEDS ORDERED: POTASSIUM CHLORIDE 40 MEQ in 0.45% NS 250 ML IV ONE (10:30)
[2018-06-15] MEDS ORDERED: *TPN PER PHARMACY XX PRN (10:30)
[2018-06-15 11:24] LABS: PHOSPHORUS 2.3 mg/dL (2.7-4.5)
[2018-06-15 12:06] VITALS: BP_SYST 114
[2018-06-15] MEDS: VANCOMYCIN HCL 1,000 MG in NS 250 ML IV SCH (15:29)
[2018-06-15 15:37] VITALS: BP_SYST 116
[2018-06-15 16:31] VITALS: BP_SYST 112
[2018-06-15] MEDS: 0.45% NACL 1,000 ML IV SCH (17:54)
[2018-06-15] MEDS: FAT EMULSIONS 250 ML IV SCH (18:00)
[2018-06-15] MEDS ORDERED: TPN CENTRAL 0.0001 ML, SODIUM CHLORIDE 40 MEQ, POTASSIUM CHLORIDE 20 MEQ, K PHOS 9 MM, ... IV SCH ×9 (18:00)
[2018-06-15 20:00] VITALS: BP_SYST 146
[2018-06-15] MEDS: HEPARIN SODIUM,PORCINE 5000 UNITS/ML VIAL SUBCUT SCH (20:09)
[2018-06-15] MEDS: traZODone HCL 50 MG TABLET (DESYREL) PO SCH ×2 (20:10)
[2018-06-15] MEDS: INSULIN REGULAR, HUMAN 100 UNITS/ML, 10 ML VIAL (novoLIN R) SUBCUT PRN (23:35)
[2018-06-16] MEDS: IPRATROPIUM BROM 0.5 MG/2.5 ML VIAL.NEB (ATROVENT) INH SCH ×4 (00:20→19:46)
[2018-06-16] MEDS: ALBUTEROL SULFATE 0.083% 2.5 MG/3 ML VIAL.NEB INH SCH ×4 (00:20→19:46)
[2018-06-16 00:35] VITALS: BP_SYST 116
[2018-06-16] MEDS: MORPHINE 4 MG/ML INJ. SYRINGE IVP PRN ×2 (03:08→21:30)
[2018-06-16] MEDS: 0.45% NACL 1,000 ML IV SCH ×2 (03:09→21:43)
[2018-06-16] MEDS: INSULIN REGULAR, HUMAN 100 UNITS/ML, 10 ML VIAL (novoLIN R) SUBCUT PRN ×3 (06:04→17:27)
[2018-06-16] MEDS: METOCLOPRAMIDE HCL 10 MG/2 ML VIAL IVP SCH ×3 (06:04→17:11)
[2018-06-16] MEDS: LEVOTHYROXINE SODIUM 0.112 MG TABLET PO SCH (06:05)
[2018-06-16 06:57] LABS: ALANINE AMINOTRANSFERASE 11 U/L (12-78); ALBUMIN 1.7 g/dL (3.4-4.8); ANION GAP 5 (5-15); ASPARTATE AMINOTRANSFERASE 14 U/L (10-37); CALCIUM 8.5 mg/dL (8.4-11.0); CHLORIDE 106 mmol/L (98-107); CREATININE 1.61 mg/dL (0.55-1.30); GLUCOSE 148 mg/dL (70-99); LIPASE 80 U/L (73-393); PHOSPHORUS 2.1 mg/dL (2.7-4.5); POTASSIUM 3.4 mmol/L (3.5-5.1); SODIUM SERUM 141 mmol/L (136-145); TOTAL BILIRUBIN 0.2 mg/dL (0.0-1.0); UREA NITROGEN, BLOOD 19 mg/dL (8-21)
[2018-06-16 07:18] LABS: BASOPHILS % (AUTO) 0.2 % (0.0-2.0); EOSINOPHILS # (AUTO) 0.2 K/uL (0.0-0.4); EOSINOPHILS % (AUTO) 1.3 % (0.0-4.0); HEMOGLOBIN 8.4 g/dL (14.0-18.0); LYMPHOCYTES # (AUTO) 0.6 K/uL (1.0-5.5); LYMPHOCYTES % (AUTO) 4.3 % (20.5-51.5); MEAN CORPUSCULAR HEMOGLOBIN 30 pg (27-31); MEAN CORPUSCULAR HGB CONC 32 % (32-36); MEAN CORPUSCULAR VOLUME 91 fL (79.0-98.0); MONOCYTES # (AUTO) 0.7 K/uL (0.0-1.0); MONOCYTES % (AUTO) 4.9 % (1.7-9.3); NEUTROPHILS # (AUTO) 13.1 K/uL (1.8-7.7); NEUTROPHILS % (AUTO) 89.3 % (40.0-70.0); PLATELET COUNT (AUTO) 299 K/uL (130-430); RED BLOOD CELL COUNT(AUTO) 2.84 MIL/uL (4.2-6.2); RED CELL DISTRIBUTION WIDTH 16.3 % (9.0-15.0); WHITE BLOOD COUNT (AUTO) 14.6 K/uL (4.8-10.8)
[2018-06-16 08:00] VITALS: BP_SYST 135
[2018-06-16] MEDS: PANTOPRAZOLE SODIUM 40 MG/VIAL (PROTONIX) IVP SCH (08:56)
[2018-06-16] MEDS: HYDROCORTISONE SOD SUCC 100 MG/2 ML VIAL IVP SCH ×2 (08:57→21:24)
[2018-06-16] MEDS: HEPARIN SODIUM,PORCINE 5000 UNITS/ML VIAL SUBCUT SCH ×2 (08:58→21:28)
[2018-06-16] MEDS ORDERED: [UNRECOGNIZED DRUG - OTHER] IV SCH ×18 (09:15→18:00)
[2018-06-16] MEDS ORDERED: TPN CENTRAL IV SCH ×18 (09:15→18:00)
[2018-06-16] MEDS ORDERED: POTASSIUM CHLORIDE IV SCH ×18 (09:15→18:00)
[2018-06-16] MEDS ORDERED: SODIUM CHLORIDE IV SCH ×18 (09:15→18:00)
[2018-06-16 12:15] VITALS: BP_SYST 121
[2018-06-16 13:55] VITALS: BP_SYST 121
[2018-06-16] MEDS: VANCOMYCIN HCL 1,000 MG in NS 250 ML IV SCH (14:09)
[2018-06-16] MEDS ORDERED: DIATR MEGLU/DIATRIZ SOD 30 ML SOLUTION PO ONE (15:03)
[2018-06-16 16:39] VITALS: BP_SYST 111
[2018-06-16] MEDS: FAT EMULSIONS 250 ML IV SCH (18:06)
[2018-06-16 19:34] VITALS: BP_SYST 120
[2018-06-16] MEDS: traZODone HCL 50 MG TABLET (DESYREL) PO SCH (21:24)
[2018-06-17 00:20] VITALS: BP_SYST 128
[2018-06-17] MEDS: METOCLOPRAMIDE HCL 10 MG/2 ML VIAL IVP SCH ×4 (00:34→17:42)
[2018-06-17] MEDS: INSULIN REGULAR, HUMAN 100 UNITS/ML, 10 ML VIAL (novoLIN R) SUBCUT PRN ×2 (00:35→18:03)
[2018-06-17] MEDS: ALBUTEROL SULFATE 0.083% 2.5 MG/3 ML VIAL.NEB INH SCH ×4 (01:45→19:00)
[2018-06-17] MEDS: IPRATROPIUM BROM 0.5 MG/2.5 ML VIAL.NEB (ATROVENT) INH SCH ×4 (01:45→19:00)
[2018-06-17] MEDS: MORPHINE 4 MG/ML INJ. SYRINGE IVP PRN ×3 (03:24→21:38)
[2018-06-17 04:21] LABS: APPEARANCE,SPUN,BODY FLUID CLEAR (CLEAR); BF APPEARANCE UNSPUN HAZY (CLEAR); BODY FLUID COLOR AMBER (LT YELLOW); BODY FLUID SOURCE/ TYPE THORACENTESIS; SOURCE/TYPE ,BODY FLUID PLEURAL
[2018-06-17 04:22] LABS: BODY FLUID TOTAL VOLUME 1000 mL; WBC, BODY FLUID 22 /uL
[2018-06-17 04:23] LABS: EOSINOPHIL, BODY FLUID 3 %; LYMPHOCYTES, BODY FLUID 53 %; MONOCYTES,BODY FLUID 10 %; NEUTROPHIL, BODY FLUID 37 %; RBC, BODY FLUID 640 /uL
[2018-06-17 04:24] LABS: BODY FLUID CRYSTALS NO CRYSTALS SEEN (None Seen)
[2018-06-17] MEDS: LEVOTHYROXINE SODIUM 0.112 MG TABLET PO SCH (06:07)
[2018-06-17 07:27] LABS: ANION GAP 7 (5-15); CALCIUM 8.6 mg/dL (8.4-11.0); CHLORIDE 103 mmol/L (98-107); CREATININE 1.44 mg/dL (0.55-1.30); GLUCOSE 133 mg/dL (70-99); POTASSIUM 3.1 mmol/L (3.5-5.1); SODIUM SERUM 140 mmol/L (136-145); UREA NITROGEN, BLOOD 15 mg/dL (8-21)
[2018-06-17 07:33] LABS: ALANINE AMINOTRANSFERASE 11 U/L (12-78); ALBUMIN 1.7 g/dL (3.4-4.8); ASPARTATE AMINOTRANSFERASE 16 U/L (10-37); PHOSPHORUS 2.6 mg/dL (2.7-4.5); TOTAL BILIRUBIN 0.3 mg/dL (0.0-1.0)
[2018-06-17 07:53] LABS: BASOPHILS % (AUTO) 0.2 % (0.0-2.0); EOSINOPHILS # (AUTO) 0.3 K/uL (0.0-0.4); EOSINOPHILS % (AUTO) 2.3 % (0.0-4.0); HEMATOCRIT 27.5 % (36-54); HEMOGLOBIN 8.9 g/dL (14.0-18.0); LYMPHOCYTES # (AUTO) 0.7 K/uL (1.0-5.5); LYMPHOCYTES % (AUTO) 5.3 % (20.5-51.5); MEAN CORPUSCULAR HEMOGLOBIN 29 pg (27-31); MEAN CORPUSCULAR HGB CONC 32 % (32-36); MEAN CORPUSCULAR VOLUME 90 fL (79.0-98.0); MONOCYTES # (AUTO) 0.8 K/uL (0.0-1.0); MONOCYTES % (AUTO) 5.6 % (1.7-9.3); NEUTROPHILS % (AUTO) 86.6 % (40.0-70.0); PLATELET COUNT (AUTO) 307 K/uL (130-430); RED BLOOD CELL COUNT(AUTO) 3.06 MIL/uL (4.2-6.2); RED CELL DISTRIBUTION WIDTH 16.4 % (9.0-15.0); WHITE BLOOD COUNT (AUTO) 13.8 K/uL (4.8-10.8)
[2018-06-17 08:00] VITALS: BP_SYST 133
[2018-06-17] MEDS: HYDROCORTISONE SOD SUCC 100 MG/2 ML VIAL IVP SCH ×2 (09:23→21:36)
[2018-06-17] MEDS: PANTOPRAZOLE SODIUM 40 MG/VIAL (PROTONIX) IVP SCH (09:23)
[2018-06-17] MEDS: HEPARIN SODIUM,PORCINE 5000 UNITS/ML VIAL SUBCUT SCH ×2 (09:26→21:39)
[2018-06-17] MEDS ORDERED: POTASSIUM CHLORIDE 40 MEQ, LIDOCAINE JECT 2% PF 100 MG 50 MG in NS 250 ML IV ONE (11:00)
[2018-06-17 12:02] VITALS: BP_SYST 128
[2018-06-17] MEDS: VANCOMYCIN HCL 1,000 MG in NS 250 ML IV SCH (16:04)
[2018-06-17 16:11] VITALS: BP_SYST 119
[2018-06-17] MEDS: FAT EMULSIONS 250 ML IV SCH (17:41)
[2018-06-17] MEDS ORDERED: POTASSIUM CHLORIDE IV SCH ×9 (18:00)
[2018-06-17] MEDS ORDERED: [UNRECOGNIZED DRUG - OTHER] IV SCH ×9 (18:00)
[2018-06-17] MEDS ORDERED: TPN CENTRAL IV SCH ×9 (18:00)
[2018-06-17] MEDS ORDERED: SODIUM CHLORIDE IV SCH ×9 (18:00)
[2018-06-17] MEDS: 0.45% NACL 1,000 ML IV SCH (18:13)
[2018-06-17 20:17] VITALS: BP_SYST 137
[2018-06-17] MEDS: traZODone HCL 50 MG TABLET (DESYREL) PO SCH (21:37)
[2018-06-17 23:37] VITALS: BP_SYST 126
[2018-06-18] MEDS: IPRATROPIUM BROM 0.5 MG/2.5 ML VIAL.NEB (ATROVENT) INH SCH ×4 (00:38→20:38)
[2018-06-18] MEDS: ALBUTEROL SULFATE 0.083% 2.5 MG/3 ML VIAL.NEB INH SCH ×4 (00:38→20:38)
[2018-06-18] MEDS: METOCLOPRAMIDE HCL 10 MG/2 ML VIAL IVP SCH ×5 (01:13→23:51)
[2018-06-18] MEDS: LEVOTHYROXINE SODIUM 0.112 MG TABLET PO SCH (06:10)
[2018-06-18] MEDS: INSULIN REGULAR, HUMAN 100 UNITS/ML, 10 ML VIAL (novoLIN R) SUBCUT PRN (06:12)
[2018-06-18 07:18] LABS: ANION GAP 5 (5-15); CALCIUM 8.7 mg/dL (8.4-11.0); CHLORIDE 105 mmol/L (98-107); GLUCOSE 158 mg/dL (70-99); POTASSIUM 3.9 mmol/L (3.5-5.1); SODIUM SERUM 137 mmol/L (136-145); UREA NITROGEN, BLOOD 15 mg/dL (8-21)
[2018-06-18 07:39] LABS: BASOPHILS % (AUTO) 0.1 % (0.0-2.0); EOSINOPHILS % (AUTO) 0.3 % (0.0-4.0); HEMATOCRIT 27.3 % (36-54); HEMOGLOBIN 9.1 g/dL (14.0-18.0); LYMPHOCYTES # (AUTO) 0.5 K/uL (1.0-5.5); LYMPHOCYTES % (AUTO) 3.3 % (20.5-51.5); MEAN CORPUSCULAR HEMOGLOBIN 30 pg (27-31); MEAN CORPUSCULAR HGB CONC 33 % (32-36); MEAN CORPUSCULAR VOLUME 90 fL (79.0-98.0); MONOCYTES # (AUTO) 0.7 K/uL (0.0-1.0); MONOCYTES % (AUTO) 4.9 % (1.7-9.3); NEUTROPHILS # (AUTO) 12.5 K/uL (1.8-7.7); NEUTROPHILS % (AUTO) 91.4 % (40.0-70.0); PLATELET COUNT (AUTO) 324 K/uL (130-430); RED BLOOD CELL COUNT(AUTO) 3.03 MIL/uL (4.2-6.2); RED CELL DISTRIBUTION WIDTH 16.4 % (9.0-15.0); WHITE BLOOD COUNT (AUTO) 13.7 K/uL (4.8-10.8)
[2018-06-18] MEDS ORDERED: GASTROGRAFIN 120 ML ONE ×2 (08:25→12:59)
[2018-06-18] MEDS: HYDROCORTISONE SOD SUCC 100 MG/2 ML VIAL IVP SCH ×2 (09:34→21:12)
[2018-06-18] MEDS: PANTOPRAZOLE SODIUM 40 MG/VIAL (PROTONIX) IVP SCH (09:34)
[2018-06-18] MEDS: HEPARIN SODIUM,PORCINE 5000 UNITS/ML VIAL SUBCUT SCH ×2 (09:36→21:14)
[2018-06-18 12:02] VITALS: BP_SYST 126
[2018-06-18] MEDS: VANCOMYCIN HCL 1,000 MG in NS 250 ML IV SCH (15:09)
[2018-06-18 16:02] VITALS: BP_SYST 125
[2018-06-18] MEDS: FAT EMULSIONS 250 ML IV SCH (18:20)
[2018-06-18] MEDS: TPN CENTRAL IV SCH ×10 (18:21)
[2018-06-18] MEDS: POTASSIUM CHLORIDE IV SCH ×10 (18:21)
[2018-06-18] MEDS: SODIUM CHLORIDE IV SCH ×10 (18:21)
[2018-06-18] MEDS: [UNRECOGNIZED DRUG - OTHER] IV SCH ×10 (18:21)
[2018-06-18] MEDS: 0.45% NACL 1,000 ML IV SCH (18:29)
[2018-06-18 21:09] VITALS: BP_SYST 136
[2018-06-18] MEDS: traZODone HCL 50 MG TABLET (DESYREL) PO SCH (21:56)
[2018-06-18 22:26] LABS: BODY FLUID GLUCOSE 155 mg/dL; BODY FLUID TOTAL PROTEIN 2.6 g/dL
[2018-06-18 23:57] VITALS: BP_SYST 133
[2018-06-19] MEDS: IPRATROPIUM BROM 0.5 MG/2.5 ML VIAL.NEB (ATROVENT) INH SCH ×4 (01:00→21:15)
[2018-06-19] MEDS: ALBUTEROL SULFATE 0.083% 2.5 MG/3 ML VIAL.NEB INH SCH ×4 (01:00→21:15)
[2018-06-19] MEDS: LEVOTHYROXINE SODIUM 0.112 MG TABLET PO SCH (06:21)
[2018-06-19] MEDS: METOCLOPRAMIDE HCL 10 MG/2 ML VIAL IVP SCH ×3 (06:21→18:38)
[2018-06-19 07:36] LABS: BASOPHILS # (AUTO) 0.2 K/uL (0.0-0.2); EOSINOPHILS # (AUTO) 0.2 K/uL (0.0-0.4); HEMATOCRIT 28.5 % (36-54); HEMOGLOBIN 9.3 g/dL (14.0-18.0); LYMPHOCYTES # (AUTO) 0.9 K/uL (1.0-5.5); LYMPHOCYTES % (AUTO) 5.1 % (20.5-51.5); MEAN CORPUSCULAR HEMOGLOBIN 29 pg (27-31); MEAN CORPUSCULAR HGB CONC 33 % (32-36); MEAN CORPUSCULAR VOLUME 90 fL (79.0-98.0); MONOCYTES # (AUTO) 1.6 K/uL (0.0-1.0); MONOCYTES % (AUTO) 9.4 % (1.7-9.3); NEUTROPHILS # (AUTO) 13.9 K/uL (1.8-7.7); NEUTROPHILS % (AUTO) 83.5 % (40.0-70.0); PLATELET COUNT (AUTO) 273 K/uL (130-430); RED BLOOD CELL COUNT(AUTO) 3.18 MIL/uL (4.2-6.2); RED CELL DISTRIBUTION WIDTH 16.4 % (9.0-15.0); WHITE BLOOD COUNT (AUTO) 16.8 K/uL (4.8-10.8)
[2018-06-19 07:39] LABS: ALANINE AMINOTRANSFERASE 55 U/L (12-78); ALBUMIN 1.8 g/dL (3.4-4.8); ANION GAP 6 (5-15); ASPARTATE AMINOTRANSFERASE 51 U/L (10-37); CALCIUM 8.1 mg/dL (8.4-11.0); CHLORIDE 107 mmol/L (98-107); CREATININE 1.25 mg/dL (0.55-1.30); GLUCOSE 124 mg/dL (70-99); POTASSIUM 3.7 mmol/L (3.5-5.1); SODIUM SERUM 139 mmol/L (136-145); TOTAL BILIRUBIN 0.4 mg/dL (0.0-1.0); UREA NITROGEN, BLOOD 18 mg/dL (8-21)
[2018-06-19 08:00] VITALS: BP_SYST 134
[2018-06-19 11:31] VITALS: BP_SYST 116
[2018-06-19] MEDS: PANTOPRAZOLE SODIUM 40 MG/VIAL (PROTONIX) IVP SCH (11:31)
[2018-06-19] MEDS: HYDROCORTISONE SOD SUCC 100 MG/2 ML VIAL IVP SCH ×2 (11:32→20:39)
[2018-06-19] MEDS: HEPARIN SODIUM,PORCINE 5000 UNITS/ML VIAL SUBCUT SCH ×2 (11:33→20:47)
[2018-06-19 16:11] VITALS: BP_SYST 107
[2018-06-19 17:56] VITALS: BP_SYST 107
[2018-06-19] MEDS: VANCOMYCIN HCL 1,250 MG in NS 250 ML IV SCH (18:18)
[2018-06-19] MEDS: 0.45% NACL 1,000 ML IV SCH (18:19)
[2018-06-19] MEDS: FAT EMULSIONS 250 ML IV SCH (18:36)
[2018-06-19] MEDS: [UNRECOGNIZED DRUG - OTHER] IV SCH ×10 (18:37)
[2018-06-19] MEDS: TPN CENTRAL IV SCH ×10 (18:37)
[2018-06-19] MEDS: POTASSIUM CHLORIDE IV SCH ×10 (18:37)
[2018-06-19] MEDS: SODIUM CHLORIDE IV SCH ×10 (18:37)
[2018-06-19 19:00] VITALS: BP_SYST 111
[2018-06-19 20:00] VITALS: BP_SYST 111
[2018-06-19] MEDS: traZODone HCL 50 MG TABLET (DESYREL) PO SCH (20:39)
[2018-06-19] MEDS: TEMAZEPAM 7.5 MG CAPSULE PO SCH (20:39)
[2018-06-20 00:03] VITALS: BP_SYST 109
[2018-06-20] MEDS: METOCLOPRAMIDE HCL 10 MG/2 ML VIAL IVP SCH ×5 (00:35→23:57)
[2018-06-20] MEDS: INSULIN REGULAR, HUMAN 100 UNITS/ML, 10 ML VIAL (novoLIN R) SUBCUT PRN (00:47)
[2018-06-20] MEDS: ALBUTEROL SULFATE 0.083% 2.5 MG/3 ML VIAL.NEB INH SCH ×4 (01:00→19:00)
[2018-06-20] MEDS: IPRATROPIUM BROM 0.5 MG/2.5 ML VIAL.NEB (ATROVENT) INH SCH ×4 (01:00→19:00)
[2018-06-20] MEDS: LEVOTHYROXINE SODIUM 0.112 MG TABLET PO SCH (05:54)
[2018-06-20 07:28] LABS: ALANINE AMINOTRANSFERASE 64 U/L (12-78); ALBUMIN 1.8 g/dL (3.4-4.8); ANION GAP 8 (5-15); ASPARTATE AMINOTRANSFERASE 33 U/L (10-37); CALCIUM 8.5 mg/dL (8.4-11.0); CHLORIDE 105 mmol/L (98-107); CREATININE 1.43 mg/dL (0.55-1.30); GLUCOSE 74 mg/dL (70-99); POTASSIUM 3.3 mmol/L (3.5-5.1); SODIUM SERUM 139 mmol/L (136-145); TOTAL BILIRUBIN 0.4 mg/dL (0.0-1.0); UREA NITROGEN, BLOOD 18 mg/dL (8-21)
[2018-06-20 07:41] LABS: BASOPHILS % (AUTO) 0.2 % (0.0-2.0); EOSINOPHILS # (AUTO) 0.5 K/uL (0.0-0.4); EOSINOPHILS % (AUTO) 3.8 % (0.0-4.0); HEMATOCRIT 28.6 % (36-54); HEMOGLOBIN 9.2 g/dL (14.0-18.0); LYMPHOCYTES # (AUTO) 0.8 K/uL (1.0-5.5); MEAN CORPUSCULAR HEMOGLOBIN 29 pg (27-31); MEAN CORPUSCULAR HGB CONC 32 % (32-36); MEAN CORPUSCULAR VOLUME 90 fL (79.0-98.0); MONOCYTES # (AUTO) 0.8 K/uL (0.0-1.0); PLATELET COUNT (AUTO) 304 K/uL (130-430); RED BLOOD CELL COUNT(AUTO) 3.18 MIL/uL (4.2-6.2); RED CELL DISTRIBUTION WIDTH 17.4 % (9.0-15.0)
[2018-06-20 07:42] LABS: WHITE BLOOD COUNT (AUTO) 13.7 K/uL (4.8-10.8)
[2018-06-20 08:06] VITALS: BP_SYST 116
[2018-06-20] MEDS: HYDROCORTISONE SOD SUCC 100 MG/2 ML VIAL IVP SCH (08:12)
[2018-06-20] MEDS: PANTOPRAZOLE SODIUM 40 MG/VIAL (PROTONIX) IVP SCH (08:12)
[2018-06-20] MEDS: HEPARIN SODIUM,PORCINE 5000 UNITS/ML VIAL SUBCUT SCH ×2 (08:14→21:46)
[2018-06-20] MEDS ORDERED: POTASSIUM CHLORIDE 40 MEQ in NS 250 ML IV ONE (10:00)
[2018-06-20] MEDS: 0.45% NACL 1,000 ML IV SCH ×2 (11:00→18:31)
[2018-06-20 11:58] VITALS: BP_SYST 120
[2018-06-20 15:05] VITALS: BP_SYST 104
[2018-06-20] MEDS: VANCOMYCIN HCL 1,250 MG in NS 250 ML IV SCH (15:33)
[2018-06-20] MEDS ORDERED: SODIUM CHLORIDE IV SCH ×10 (18:00)
[2018-06-20] MEDS ORDERED: TPN CENTRAL IV SCH ×10 (18:00)
[2018-06-20] MEDS ORDERED: POTASSIUM CHLORIDE IV SCH ×10 (18:00)
[2018-06-20] MEDS ORDERED: [UNRECOGNIZED DRUG - OTHER] IV SCH ×10 (18:00)
[2018-06-20 20:00] VITALS: BP_SYST 117
[2018-06-20] MEDS: traZODone HCL 50 MG TABLET (DESYREL) PO SCH (21:34)
[2018-06-20] MEDS: HYDROCORTISONE 10 MG TABLET (CORTEF) PO SCH (21:35)
[2018-06-20] MEDS: TEMAZEPAM 7.5 MG CAPSULE PO SCH (21:35)
[2018-06-21] MEDS: ALBUTEROL SULFATE 0.083% 2.5 MG/3 ML VIAL.NEB INH SCH ×4 (01:00→20:15)
[2018-06-21] MEDS: IPRATROPIUM BROM 0.5 MG/2.5 ML VIAL.NEB (ATROVENT) INH SCH ×4 (01:00→20:15)
[2018-06-21 01:09] VITALS: BP_SYST 121
[2018-06-21] MEDS: LEVOTHYROXINE SODIUM 0.112 MG TABLET PO SCH (06:37)
[2018-06-21] MEDS: METOCLOPRAMIDE HCL 10 MG/2 ML VIAL IVP SCH ×3 (06:38→17:50)
[2018-06-21 08:30] LABS: HEMATOCRIT 24.7 % (36-54); MEAN CORPUSCULAR HEMOGLOBIN 29 pg (27-31); MEAN CORPUSCULAR HGB CONC 32 % (32-36); MEAN CORPUSCULAR VOLUME 91 fL (79.0-98.0); RED BLOOD CELL COUNT(AUTO) 2.72 MIL/uL (4.2-6.2); WHITE BLOOD COUNT (AUTO) 13.1 K/uL (4.8-10.8)
[2018-06-21 08:31] LABS: BASOPHILS % (AUTO) 0.1 % (0.0-2.0); EOSINOPHILS # (AUTO) 0.5 K/uL (0.0-0.4); EOSINOPHILS % (AUTO) 3.9 % (0.0-4.0); LYMPHOCYTES # (AUTO) 0.7 K/uL (1.0-5.5); LYMPHOCYTES % (AUTO) 5.2 % (20.5-51.5); MONOCYTES % (AUTO) 7.6 % (1.7-9.3); NEUTROPHILS % (AUTO) 83.2 % (40.0-70.0); PLATELET COUNT (AUTO) 271 K/uL (130-430)
[2018-06-21 08:41] VITALS: BP_SYST 97
[2018-06-21] MEDS: HYDROCORTISONE 10 MG TABLET (CORTEF) PO SCH ×2 (08:43→20:46)
[2018-06-21] MEDS: PANTOPRAZOLE SODIUM 40 MG/VIAL (PROTONIX) IVP SCH (08:44)
[2018-06-21] MEDS: HEPARIN SODIUM,PORCINE 5000 UNITS/ML VIAL SUBCUT SCH ×2 (08:45→20:45)
[2018-06-21 09:43] LABS: NEUTROPHILS # (AUTO) 10.9 K/uL (1.8-7.7)
[2018-06-21 10:20] LABS: ANION GAP 10 (5-15); CALCIUM 8.5 mg/dL (8.4-11.0); CHLORIDE 106 mmol/L (98-107); GLUCOSE 92 mg/dL (70-99); POTASSIUM 4.1 mmol/L (3.5-5.1); SODIUM SERUM 141 mmol/L (136-145); UREA NITROGEN, BLOOD 17 mg/dL (8-21)
[2018-06-21 10:26] LABS: ALANINE AMINOTRANSFERASE 39 U/L (12-78); ALBUMIN 1.7 g/dL (3.4-4.8); ASPARTATE AMINOTRANSFERASE 20 U/L (10-37); TOTAL BILIRUBIN 0.3 mg/dL (0.0-1.0)
[2018-06-21 11:24] VITALS: BP_SYST 112
[2018-06-21 15:34] VITALS: BP_SYST 130
[2018-06-21] MEDS: 0.45% NACL 1,000 ML IV SCH (17:15)
[2018-06-21] MEDS: TEMAZEPAM 7.5 MG CAPSULE PO SCH (20:46)
[2018-06-21] MEDS: traZODone HCL 50 MG TABLET (DESYREL) PO SCH (20:47)
[2018-06-21 21:10] VITALS: BP_SYST 114
[2018-06-22] VITALS (7 sets, daily range): BP systolic 103–118
[2018-06-22] MEDS: METOCLOPRAMIDE HCL 10 MG/2 ML VIAL IVP SCH ×2 (00:03→06:10)
[2018-06-22] MEDS: ALBUTEROL SULFATE 0.083% 2.5 MG/3 ML VIAL.NEB INH SCH ×4 (01:00→19:57)
[2018-06-22] MEDS: IPRATROPIUM BROM 0.5 MG/2.5 ML VIAL.NEB (ATROVENT) INH SCH ×4 (01:00→19:57)
[2018-06-22] MEDS: LEVOTHYROXINE SODIUM 0.112 MG TABLET PO SCH (06:10)
[2018-06-22 07:00] LABS: BASOPHILS % (AUTO) 0.1 % (0.0-2.0); EOSINOPHILS # (AUTO) 0.4 K/uL (0.0-0.4); EOSINOPHILS % (AUTO) 3.2 % (0.0-4.0); HEMATOCRIT 24.9 % (36-54); LYMPHOCYTES # (AUTO) 0.6 K/uL (1.0-5.5); LYMPHOCYTES % (AUTO) 5.2 % (20.5-51.5); MEAN CORPUSCULAR HEMOGLOBIN 29 pg (27-31); MEAN CORPUSCULAR HGB CONC 32 % (32-36); MEAN CORPUSCULAR VOLUME 91 fL (79.0-98.0); MONOCYTES # (AUTO) 0.7 K/uL (0.0-1.0); MONOCYTES % (AUTO) 6.3 % (1.7-9.3); NEUTROPHILS % (AUTO) 85.2 % (40.0-70.0); PLATELET COUNT (AUTO) 258 K/uL (130-430); RED BLOOD CELL COUNT(AUTO) 2.74 MIL/uL (4.2-6.2); RED CELL DISTRIBUTION WIDTH 17.2 % (9.0-15.0); WHITE BLOOD COUNT (AUTO) 11.7 K/uL (4.8-10.8)
[2018-06-22 07:07] LABS: ANION GAP 9 (5-15); CALCIUM 8.6 mg/dL (8.4-11.0); CHLORIDE 103 mmol/L (98-107); CREATININE 1.36 mg/dL (0.55-1.30); GLUCOSE 91 mg/dL (70-99); POTASSIUM 3.9 mmol/L (3.5-5.1); SODIUM SERUM 139 mmol/L (136-145); UREA NITROGEN, BLOOD 17 mg/dL (8-21)
[2018-06-22 07:15] LABS: ALANINE AMINOTRANSFERASE 27 U/L (12-78); ALBUMIN 1.6 g/dL (3.4-4.8); ASPARTATE AMINOTRANSFERASE 15 U/L (10-37); TOTAL BILIRUBIN 0.4 mg/dL (0.0-1.0)
[2018-06-22] MEDS: HYDROCORTISONE 10 MG TABLET (CORTEF) PO SCH ×2 (08:58→21:31)
[2018-06-22] MEDS: PANTOPRAZOLE SODIUM 40 MG/VIAL (PROTONIX) IVP SCH (08:58)
[2018-06-22] MEDS: HEPARIN SODIUM,PORCINE 5000 UNITS/ML VIAL SUBCUT SCH ×2 (09:00→21:33)
[2018-06-22] MEDS ORDERED: HYDROcodone/ACETAMIN 5-325 MG TAB (NORCO/ VICODIN) PO PRN (11:45)
[2018-06-22] MEDS: TEMAZEPAM 7.5 MG CAPSULE PO SCH (21:30)
[2018-06-22] MEDS: traZODone HCL 50 MG TABLET (DESYREL) PO SCH (21:30)
[2018-06-23] MEDS: ALBUTEROL SULFATE 0.083% 2.5 MG/3 ML VIAL.NEB INH SCH ×2 (01:00→07:00)
[2018-06-23] MEDS: IPRATROPIUM BROM 0.5 MG/2.5 ML VIAL.NEB (ATROVENT) INH SCH ×2 (01:00→07:00)
[2018-06-23] MEDS ORDERED: PANTOPRAZOLE SODIUM 40 MG TAB PO SCH (06:00)
[2018-06-23] MEDS: LEVOTHYROXINE SODIUM 0.112 MG TABLET PO SCH (06:16)
[2018-06-23 08:05] VITALS: BP_SYST 102
== END 2018-06-23 08:05 | DRG 326 ==
LOC: SED 06:26 → SIC 09:43 → SMU 06-07 10:19 → SIC 06-13 11:16 → STU 06-14 14:57
PROVIDERS: ADMIT Specialist; ATTEND Specialist
PROC: 0W993ZZ Drainage of Right Pleural Cavity, Percutaneous Approach (ICD-10-PCS; 2018-06-05)
PROC: 3E0336Z Introduction of Nutritional Substance into Peripheral Vein, Percutaneous Approach (ICD-10-PCS; 2018-06-06)
PROC: 0D9670Z Drainage of Stomach with Drainage Device, Via Natural or Artificial Opening (ICD-10-PCS; 2018-06-11)
PROC: 0DN80ZZ Release Small Intestine, Open Approach (ICD-10-PCS; 2018-06-13)
PROC: 3E0T3BZ Introduction of Anesthetic Agent into Peripheral Nerves and Plexi, Percutaneous Approach (ICD-10-PCS; 2018-06-13)
PROC: 0D9600Z Drainage of Stomach with Drainage Device, Open Approach (ICD-10-PCS; principal; 2018-06-13 08:00)
PROC: 0W993ZZ Drainage of Right Pleural Cavity, Percutaneous Approach (ICD-10-PCS; 2018-06-16)
DX: K56.50 Intestinal adhesions [bands], unspecified as to partial versus complete obstruction (principal); J18.9 Pneumonia, unspecified organism; R65.21 Severe sepsis with septic shock; A41.9 Sepsis, unspecified organism; C34.91 Malignant neoplasm of unspecified part of right bronchus or lung; J91.8 Pleural effusion in other conditions classified elsewhere; J44.0 Chronic obstructive pulmonary disease with (acute) lower respiratory infection; E27.40 Unspecified adrenocortical insufficiency; N17.9 Acute kidney failure, unspecified; K56.7 Ileus, unspecified; E03.9 Hypothyroidism, unspecified; D64.9 Anemia, unspecified; E78.5 Hyperlipidemia, unspecified; I10 Essential (primary) hypertension; N28.9 Disorder of kidney and ureter, unspecified; K29.70 Gastritis, unspecified, without bleeding; N40.0 Benign prostatic hyperplasia without lower urinary tract symptoms; Z85.118 Personal history of other malignant neoplasm of bronchus and lung; Z85.6 Personal history of leukemia; Z92.3 Personal history of irradiation; Z87.891 Personal history of nicotine dependence
CPT/HCPCS: 32555; 36415; 71045; 71250-TC; 74018; 74250-TC; 76604; 80048; 80053; 80202-TC; 81003; 82248-TC; 82947-TC; 82962; 83605; 83615-TC; 83690-TC; 83735-TC; 83880; 84100-TC; 84157-TC; 84443-TC; 84478-TC; 84484; 85025; 85384-TC; 85610-TC; 85730-TC; 86886; 86900; 86901; 86920; 87040-TC; 87070-TC; 87081; 87101; 87116; 88108; 88302; 88304; 88305; 89051-TC; 89060-TC; 90656; 93005; 94010; 94640; 94760; 96361; 96365; 96366; 96367; 97110-GP; 97112-GP; 97116-GP; 97530-GP; 99285; C1729; C9113; G0378; J0690; J0696; J1644; J1650; J1720; J1815; J1885; J1940; J2250; J2270; J2370; J2405; J2543; J2704; J2765; J3010; J3370; J3475; J3480; J3490; J7030; J7040; J7050; J7131; J7613; Q9963; Q9964